=== PATIENT | female | born 1985 | race Caucasian/White ===

== ENCOUNTER 2017-11-26 20:52 | Emergency (ER) | payer OTHER ==
[2017-11-26] MEDS: OXYCODONE/APAP 5MG/325MG(BULK FOR ED) 1 TABLET PO (23:39)
== END 2017-11-26 23:47 | disposition home or self-care (01) ==
LOC: M ED 20:52
DX: H66.011 Acute suppurative otitis media with spontaneous rupture of ear drum, right ear (principal); Z79.2 Long term (current) use of antibiotics
CPT/HCPCS: 99283

== ENCOUNTER → 2017-11-26 | Outpatient (REF) | payer OTHER | LOC: M SFHCLERA 14:22 | DX: J02.9 Acute pharyngitis, unspecified (principal) ==

== ENCOUNTER → 2018-11-15 | Outpatient (CLI) | payer OTHER ==
[~2018-11-15] MED LIST: AUGM875T28 PO; CIPRODEX AD; PERC5TAB12 PO
[2018-11-15 16:51] LABS: BASO % 0.4 % (0.0-1.0); EOS # 0.1 10^3/uL (0.0-0.50); EOS % 0.8 % (0.0-3.0); HEMATOCRIT 44.5 % (36.0-47.0); HEMOGLOBIN 14.6 g/dl (12.0-15.5); LYMPH % 28.1 % (24.0-44.0); MEAN CORPUSCULAR HGB CONC 32.8 g/dl (32.0-36.5); MEAN CORPUSCULAR VOLUME 94.5 fl (80.0-96.0); MONO # 0.4 10^3/uL (0.0-0.8); MONO % 4.9 % (0.0-5.0); NEUTROPHILS # 4.7 10^3/uL (1.8-7.7); NEUTROPHILS % 65.5 % (36.0-66.0); PLATELET COUNT, AUTOMATED 281 10^3/uL (150-450); RED BLOOD COUNT 4.71 10^6/uL (4.00-5.40); WHITE BLOOD COUNT 7.2 10^3/uL (4.0-10.0)
[2018-11-15 16:57] LABS: ALBUMIN 4.1 GM/DL (3.2-5.2); ALT/SGPT 58 U/L (12-78); AMYLASE 29 U/L (25-115); BILIRUBIN,TOTAL 0.3 MG/DL (0.2-1.0); BLOOD UREA NITROGEN 15 MG/DL (7-18); CALCIUM LEVEL 8.9 MG/DL (8.5-10.1); CARBON DIOXIDE LEVEL 31 MEQ/L (21-32); CHLORIDE LEVEL 102 MEQ/L (98-107); CREATININE FOR GFR 0.82 MG/DL (0.55-1.30); GLOMERULAR FILTRATION RATE > 60.0 (>60); GLUCOSE, FASTING 217 MG/DL (70-100); LIPASE 133 U/L (73-393); POTASSIUM SERUM 4.3 MEQ/L (3.5-5.1); SODIUM LEVEL 138 MEQ/L (136-145); TOTAL PROTEIN 7.7 GM/DL (6.4-8.2)
== END ==
LOC: M WUC 10:39
PROVIDERS: ATTEND Physician Assistant
DX: R10.812 Left upper quadrant abdominal tenderness (principal)

== ENCOUNTER 2020-04-16 06:01 | Day surgery (SDC) | payer OTHER ==
[~2020-04-16] VITALS: Ht 167.6 cm; Wt 118.4 kg
[~2020-04-16 06:01] MED LIST changes: +LR 1,000 ML IV ONE
[2020-04-16 06:28] LABS: HEMATOCRIT 45.4 % (36.0-47.0); HEMOGLOBIN 15.4 g/dl (12.0-15.5); MEAN CORPUSCULAR HEMOGLOBIN 30.4 pg (27.0-33.0); MEAN CORPUSCULAR HGB CONC 33.9 g/dl (32.0-36.5); MEAN CORPUSCULAR VOLUME 89.5 fl (80.0-96.0); PLATELET COUNT, AUTOMATED 280 10^3/uL (150-450); RED BLOOD COUNT 5.07 10^6/uL (4.00-5.40); WHITE BLOOD COUNT 6.1 10^3/uL (4.0-10.0)
[2020-04-16 06:55] LABS: BLOOD UREA NITROGEN 15 MG/DL (7-18); CALCIUM LEVEL 9.2 MG/DL (8.5-10.1); CARBON DIOXIDE LEVEL 33 MEQ/L (21-32); CHLORIDE LEVEL 98 MEQ/L (98-107); CREATININE FOR GFR 0.82 MG/DL (0.55-1.30); GLOMERULAR FILTRATION RATE > 60.0 (>60); GLUCOSE, FASTING 316 MG/DL (70-100); HCG, SERUM QUANTITATIVE < 1.0 MIU/ML; POTASSIUM SERUM 4.2 MEQ/L (3.5-5.1); SODIUM LEVEL 134 MEQ/L (136-145)
[2020-04-16] MEDS ORDERED: LIDOCAINE 2% 100MG/5ML SDV (FOR ANES.) As Ordered ONE (07:08)
[2020-04-16] MEDS ORDERED: MIDAZOLAM INJ 2MG/2ML VIAL (J2250 PER 1MG) As Ordered ONE (07:08)
[2020-04-16] MEDS ORDERED: ONDANSETRON 4MG/2ML VIAL As Ordered ONE ×2 (07:08→09:01)
[2020-04-16] MEDS ORDERED: dexameTHASONE 4 MG/ML 1ML VIAL (J1100 PER 1MG) As Ordered ONE (07:08)
[2020-04-16] MEDS ORDERED: fentaNYL 100 MCG/2 ML INJECTION (J3010) As Ordered ONE (07:08)
[2020-04-16] MEDS ORDERED: propofoL 200 MG/20 ML VIAL As Ordered ONE (07:08)
[2020-04-16] MEDS ORDERED: KETOROLAC 60MG 2ML VIAL As Ordered ONE (07:08)
[2020-04-16] MEDS ORDERED: ACETAMINOPHEN 650 MG SUPP As Ordered ONE (07:23)
[2020-04-16] MEDS ORDERED: METOCLOPRAMIDE INJ 10MG/2ML VIAL (J2765 PER 1) As Ordered ONE (09:23)
[2020-04-16] MEDS ORDERED: MEPERIDINE INJ 25 MG/ML VIAL (J2175) IV PRN (09:30)
[2020-04-16] MEDS ORDERED: oxyCODONE 5MG TAB PO PRN (09:30)
[2020-04-16] MEDS ORDERED: LR 1,000 ML IV SCH (09:30)
[2020-04-16] MEDS ORDERED: fentaNYL 100 MCG/2 ML INJECTION (J3010) IV PRN (09:30)
[2020-04-16] MEDS ORDERED: ONDANSETRON 4MG/2ML VIAL IV PRN (09:30)
[2020-04-16] MEDS ORDERED: METOCLOPRAMIDE INJ 10MG/2ML VIAL (J2765 PER 1) IV PRN (09:30)
[2020-04-16 10:15] VITALS: BP 132/81
== END 2020-04-16 10:15 | disposition home or self-care (01) ==
LOC: M SDC 06:01
PROVIDERS: ATTEND Obstetrics & Gynecology
DX: T83.39XA Other mechanical complication of intrauterine contraceptive device, initial encounter (principal); K21.9 Gastro-esophageal reflux disease without esophagitis
CPT/HCPCS: 36415; 58300; 58562; 80048; 84702; 85027; 88300; J1885; J2250; J2405; J2765; J3010; J7298